=== PATIENT | female | born 1960 | race Two or more races ===

== ENCOUNTER 2021-01-04 21:51 | Emergency (ER) | payer SELFPAY ==
[~2021-01-04] VITALS: Ht 165.1 cm; Wt 68.0 kg
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
[2021-01-04] MEDS ORDERED: HYDROCODON-ACE1 EA15 ORAL (22:44)
[2021-01-04] MEDS ORDERED: IBUPROFEN600 M1 ORAL (22:44)
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
[2021-01-04 23:08] VITALS: BP 143/75
== END 2021-01-04 23:00 | disposition home or self-care (01) ==
LOC: EMR 22:26
DX: S82.142A Displaced bicondylar fracture of left tibia, initial encounter for closed fracture (principal); Y04.8XXA Assault by other bodily force, initial encounter; Y92.9 Unspecified place or not applicable
CPT/HCPCS: 99283